=== PATIENT | female | born 1955 | race Caucasian/White ===

== ENCOUNTER 2022-05-06 14:16 | Emergency (ER) | payer OTHER ==
[~2022-05-06] VITALS: Ht 162.6 cm; Wt 65.1 kg
[2022-05-06 14:54] LABS: BASO # 0.03 K/mm3 (0.02-0.10); EOS # 0.03 K/mm3 (0.04-0.40); EOS % 0.2 % (1.0-5.0); HEMATOCRIT 39.8 % (37.0-47.0); HEMOGLOBIN 13.3 g/dL (12.5-16.0); LYMPH# 0.81 K/mm3 (1.50-4.00); MEAN CELL VOLUME 93 fl (78-100); MEAN CORPUSCULAR HEMOGLOBIN 31 pg (27-31); MEAN CORPUSCULAR HGB CONC 33 g/dL (33-37); MEAN PLATELET VOLUME 9.6 fl (7.4-10.4); MONO # 0.24 K/mm3 (0.20-0.80); NEU # 11.18 K/mm3 (1.40-6.50); PLATELET COUNT 177 K/mm3 (130-400); RED BLOOD COUNT 4.28 M/mm3 (4.10-5.30); RED CELL DISTRIBUTION WIDTH 12.8 % (11.5-14.5); WHITE BLOOD COUNT 12.3 K/mm3 (4.8-10.8)
[2022-05-06 15:02] LABS: ALBUMIN 4.4 g/dL (3.4-4.8); POTASSIUM 3.6 mmol/L (3.5-5.1)
[2022-05-06 15:03] LABS: CALCIUM 9.4 mg/dL (8.3-10.5)
[2022-05-06 15:05] LABS: TOTAL PROTEIN 6.6 g/dL (6.2-8.1)
[2022-05-06 15:06] LABS: TOTAL BILIRUBIN 0.5 mg/dL (0.2-1.2)
[2022-05-06 16:03] LABS: URINE APPEARANCE CLOUDY; URINE COLOR YELLOW
[2022-05-06 16:04] LABS: PH-URINE 7.5 (5.0 - 8.0); URINE BILIRUBIN NEGATIVE (NEGATIVE); URINE BLOOD TRACE (NEGATIVE); URINE GLUCOSE NEGATIVE (NEGATIVE); URINE KETONE 2+ (NEGATIVE); URINE LEUKOCYTE ESTERASE TRACE (NEGATIVE); URINE NITRATE POSITIVE (NEGATIVE); URINE PROTEIN(semi-quant) TRACE (NEGATIVE); URINE UROBILINOGEN NORMAL (NORMAL)
[2022-05-07 07:32] LABS: HEMATOCRIT 37.2 % (37.0-47.0); HEMOGLOBIN 12.1 g/dL (12.5-16.0); MEAN PLATELET VOLUME 9.7 fl (7.4-10.4); RED BLOOD COUNT 3.97 M/mm3 (4.10-5.30); RED CELL DISTRIBUTION WIDTH 13.2 % (11.5-14.5); WHITE BLOOD COUNT 13.7 K/mm3 (4.8-10.8)
[2022-05-07 07:35] LABS: POTASSIUM 3.7 mmol/L (3.5-5.1)
[2022-05-07 07:36] LABS: CALCIUM 8.4 mg/dL (8.3-10.5)
[2022-05-07 08:24] LABS: URINE APPEARANCE HAZY; URINE COLOR CLEAR
[2022-05-07 08:25] LABS: URINE BILIRUBIN NEGATIVE (NEGATIVE); URINE BLOOD TRACE (NEGATIVE); URINE GLUCOSE NEGATIVE (NEGATIVE); URINE KETONE NEGATIVE (NEGATIVE); URINE LEUKOCYTE ESTERASE NEGATIVE (NEGATIVE); URINE NITRATE NEGATIVE (NEGATIVE); URINE PROTEIN(semi-quant) TRACE (NEGATIVE); URINE UROBILINOGEN NORMAL (NORMAL)
[2022-05-07] MEDS ORDERED: CEFDINIR300 MG PO (12:32)
[2022-05-07 12:55] VITALS: BP 104/65
== END 2022-05-07 13:42 | disposition home or self-care (01) ==
LOC: ED 14:16
PROVIDERS: Family Medicine
DX: N13.6 Pyonephrosis (principal); N10 Acute pyelonephritis; Z28.310 Unvaccinated for COVID-19
CPT/HCPCS: J0696; J1885; J2060; J2405; J3010; J7030; Q9967